=== PATIENT | male | born 1980 | race Caucasian/White ===

== ENCOUNTER → 2024-10-05 | Outpatient (CLI) | payer OTHER, SELFPAY ==
--- NOTE | 2024-10-05 07:45 | MRI_ITS ---
PROCEDURE: BRAIN W/WO CONTRAST 10/05/2024 REASON FOR EXAM: RIGHT SENSORINEURAL HEARING LOSS TECHNIQUE: Brain MRI without and with intravenous contrast with additional dedicated imaging of the IACs. CONTRAST: 17 mL of intravenous Clariscan COMPARISON: None FINDINGS: No diffusion restriction to suggest acute/subacute ischemia. No evidence of acute intracranial hemorrhage, midline shift or mass effect. Cerebral volume is age-appropriate. No hydrocephalus. No parenchymal signal abnormalities. 7th, 8th and 5th cranial nerve complexes are symmetric and within normal limits. No pathologic enhancement. No cerebellopontine angle mass. Globes are intact. Paranasal sinuses and mastoid air cells are clear. MRI/Brain W/WO Contrast IMPRESSION: No acute intracranial process, parenchymal signal abnormality or pathologic enh ancement. Reading Location: [facility]
== END | disposition home or self-care (01) ==
PROVIDERS: Referring Provider Otolaryngology; Visit Provider Otolaryngology
DX: H90.41 Sensorineural hearing loss, unilateral, right ear, with unrestricted hearing on the contralateral side (principal)
CPT/HCPCS: 70553; A9575